=== PATIENT | male | born 1965 | race Caucasian/White ===

== ENCOUNTER 2021-09-22 15:55 | Outpatient (REF) | payer OTHER, SELFPAY | END 2021-09-22 15:56 | disposition home or self-care (01) | LOC: LBN 15:55 | PROVIDERS: Visit Provider Nurse Practitioner Gerontology | DX: N39.0 Urinary tract infection, site not specified (principal) | CPT/HCPCS: 87086 ==

== ENCOUNTER 2021-10-28 19:46 | Outpatient (REF) | payer OTHER, SELFPAY | END 2021-10-28 19:47 | disposition home or self-care (01) | LOC: LBN 19:46 | PROVIDERS: PCP Urology; Visit Provider Urology | DX: N39.0 Urinary tract infection, site not specified (principal) | CPT/HCPCS: 87077; 87086 ==

== ENCOUNTER 2021-12-01 20:57 | Outpatient (REF) | payer OTHER, SELFPAY ==
[2021-12-01 18:32] LABS: Bilirubin Negative (Negative); Blood Large (Negative); Clarity Cloudy (Clear); Glucose Negative (Negative); Ketones Negative (Negative); Leukocyte Esterase Trace (Negative); Nitrite Negative (Negative); Specific Gravity >= 1.030 (1.005-1.025); Urobilinogen 0.2 EU/dL (Up TO 0.2)
[2021-12-01 18:39] LABS: C & S Indicated? C&S Done As Ordered; RBC >50 HPF (0-2)
== END 2021-12-01 20:58 | disposition home or self-care (01) ==
LOC: LBN 20:57
PROVIDERS: PCP Urology; Visit Provider Urology
DX: R30.0 Dysuria (principal); R33.9 Retention of urine, unspecified; R10.2 Pelvic and perineal pain
CPT/HCPCS: 87077; 81003; 81015; 87086; 87186

== ENCOUNTER 2022-01-26 18:22 | Outpatient (REF) | payer OTHER, SELFPAY ==
[2022-01-26 13:50] LABS: Bilirubin Negative (Negative); Blood Trace-intact (Negative); Clarity Clear (Clear); Glucose Negative (Negative); Ketones Negative (Negative); Leukocyte Esterase Trace (Negative); Nitrite Negative (Negative); Specific Gravity 1.025 (1.005-1.025); Urobilinogen 0.2 EU/dL (Up TO 0.2)
[2022-01-26 14:02] LABS: Bacteria Negative HPF (Negative); C & S Indicated? Yes; Casts Negative LPF (Negative); Crystals Negative HPF (Negative); Epithelial Cells Rare HPF (Negative); Mucus Negative (Negative)
== END 2022-01-26 18:23 | disposition home or self-care (01) ==
LOC: LBN 18:22
PROVIDERS: Visit Provider Legal Medicine
DX: R30.0 Dysuria (principal)
CPT/HCPCS: 81003; 81015; 87086